=== PATIENT | female | born 1990 | race Caucasian/White ===

== ENCOUNTER 2023-08-02 15:09 | Emergency (ER) | payer MEDICAID ==
[~2023-08-02] VITALS: Ht 175.3 cm; Wt 54.4 kg
[2023-08-02 15:47] VITALS: BP_SYST 135; PULSE 74; RESP 18; TEMP 98.4; O2SAT 95
[2023-08-02 16:31] LABS: BILIRUBIN,URINE NEGATIVE (NEGATIVE); BLOOD, URINE 3+ (NEGATIVE); CLARITY/URINE SL CLOUDY (CLEAR); COLOR,URINE YELLOW (YELLOW); GLUCOSE,URINE NEGATIVE (NEGATIVE); KETONES,URINE TRACE (NEGATIVE); LEUKOCYTE ESTERASE ,URINE NEGATIVE (NEGATIVE); NITRITE, URINE NEGATIVE (NEGATIVE); PROTEIN URINE 2+ (NEGATIVE); UROBILINOGEN,URINE 0.2 (0.2-1.0)
[2023-08-02 16:38] LABS: BASOPHILS # (AUTO) 0.1 K/uL (0.0-0.2); BASOPHILS % (AUTO) 0.7 % (0.0-2.0); EOSINOPHILS # (AUTO) 0.1 K/uL (0.0-0.4); EOSINOPHILS % (AUTO) 0.8 % (0.0-4.0); HEMATOCRIT 40.5 % (36-48); HEMOGLOBIN 13.7 g/dL (12.0-16.0); LYMPHOCYTES # (AUTO) 1.9 K/uL (1.0-5.5); LYMPHOCYTES % (AUTO) 15.1 % (20.5-51.5); MEAN CORPUSCULAR HEMOGLOBIN 29 pg (27-31); MEAN CORPUSCULAR HGB CONC 34 % (32-36); MEAN CORPUSCULAR VOLUME 87 fL (79.0-98.0); MONOCYTES # (AUTO) 0.6 K/uL (0.0-1.0); MONOCYTES % (AUTO) 4.6 % (1.7-9.3); NEUTROPHILS # (AUTO) 10.1 K/uL (1.8-7.7); NEUTROPHILS % (AUTO) 78.8 % (40.0-70.0); PLATELET COUNT (AUTO) 302 K/uL (130-430); RED BLOOD CELL COUNT(AUTO) 4.68 MIL/uL (4.2-6.2); RED CELL DISTRIBUTION WIDTH 13.7 % (9.0-15.0); WHITE BLOOD COUNT (AUTO) 12.8 K/uL (4.8-10.8)
[2023-08-02 17:49] LABS: BACTERIA,URINE MODERATE /HPF (None Seen); MUCUS,URINE 2+ /LPF (None Seen); RBC,URINE >100 /HPF (0-3)
[2023-08-02] MEDS ORDERED: NITR-85 PO (18:23)
[2023-08-02 19:20] VITALS: BP_SYST 135; PULSE 74; RESP 18; TEMP 98.4; O2SAT 95
== END 2023-08-02 18:25 | disposition home or self-care (01) ==
LOC: SED 15:09
DX: O20.0 Threatened abortion (principal); O43.891 Other placental disorders, first trimester; O23.41 Unspecified infection of urinary tract in pregnancy, first trimester; N39.0 Urinary tract infection, site not specified; Z3A.01 Less than 8 weeks gestation of pregnancy; F17.210 Nicotine dependence, cigarettes, uncomplicated; Z88.0 Allergy status to penicillin; Z79.899 Other long term (current) drug therapy
CPT/HCPCS: 36415; 76856; 81000; 81001; 81015; 84702; 85025; 86900; 86901; 99284

== ENCOUNTER 2023-08-05 19:17 | Emergency (ER) | payer MEDICAID ==
[~2023-08-05] VITALS: Ht 175.3 cm; Wt 49.4 kg
[~2023-08-05 19:17] MED LIST: NITR-85 PO
[2023-08-05 19:23] VITALS: BP_SYST 123; PULSE 70; RESP 16; TEMP 98.9; O2SAT 100
[2023-08-05] MEDS: MORPHINE 4 MG INJ. 4 MG/ML VIAL IVP ONE (20:20)
[2023-08-05] MEDS: NACL 0.9% 1,000 ML IV ONE (20:42)
[2023-08-05 20:53] LABS: BASOPHILS % (AUTO) 0.3 % (0.0-2.0); EOSINOPHILS % (AUTO) 0.1 % (0.0-4.0); HEMATOCRIT 41.1 % (36-48); HEMOGLOBIN 14.1 g/dL (12.0-16.0); LYMPHOCYTES # (AUTO) 0.2 K/uL (1.0-5.5); LYMPHOCYTES % (AUTO) 1.7 % (20.5-51.5); MEAN CORPUSCULAR HEMOGLOBIN 29 pg (27-31); MEAN CORPUSCULAR HGB CONC 34 % (32-36); MEAN CORPUSCULAR VOLUME 85 fL (79.0-98.0); MONOCYTES # (AUTO) 0.6 K/uL (0.0-1.0); MONOCYTES % (AUTO) 5.5 % (1.7-9.3); NEUTROPHILS # (AUTO) 9.4 K/uL (1.8-7.7); NEUTROPHILS % (AUTO) 92.4 % (40.0-70.0); PLATELET COUNT (AUTO) 250 K/uL (130-430); RED BLOOD CELL COUNT(AUTO) 4.84 MIL/uL (4.2-6.2); RED CELL DISTRIBUTION WIDTH 13.5 % (9.0-15.0); WHITE BLOOD COUNT (AUTO) 10.2 K/uL (4.8-10.8)
[2023-08-05 20:55] LABS: CALCIUM 9.9 mg/dL (8.4-11.0); CREATININE 0.79 mg/dL (0.55-1.30); POTASSIUM 3.4 mmol/L (3.5-5.1)
[2023-08-05 21:21] LABS: ALBUMIN 4.4 g/dL (3.4-4.8); BILIRUBIN,DIRECT 0.2 mg/dL (0.0-0.3); TOTAL BILIRUBIN 0.8 mg/dL (0.0-1.0); TOTAL PROTEIN, SERUM 8.7 g/dL (6.4-8.3)
[2023-08-05] MEDS: ACETAMINOPHEN 500 MG TABLET PO ONE (22:18)
[2023-08-05] MEDS ORDERED: ACETAMINOPHEN 500 MG TABLET ONE (22:19)
[2023-08-05 22:33] LABS: BILIRUBIN,URINE NEGATIVE (NEGATIVE); BLOOD, URINE 1+ (NEGATIVE); COLOR,URINE YELLOW (YELLOW); GLUCOSE,URINE NEGATIVE (NEGATIVE); KETONES,URINE 1+ (NEGATIVE); LEUKOCYTE ESTERASE ,URINE NEGATIVE (NEGATIVE); NITRITE, URINE NEGATIVE (NEGATIVE); PROTEIN URINE NEGATIVE (NEGATIVE); UROBILINOGEN,URINE 0.2 (0.2-1.0)
[2023-08-05 22:35] LABS: CLARITY/URINE SLIGHTLY CLOUDY (CLEAR)
[2023-08-05 22:43] LABS: BACTERIA,URINE FEW /HPF (None Seen); WBC,URINE 0-3 /HPF (0-3)
[2023-08-05] MEDS ORDERED: ACET-2634 PO (22:59)
[2023-08-05 23:10] VITALS: BP_SYST 108; PULSE 70; RESP 16; TEMP 98.6; O2SAT 98
== END 2023-08-05 23:10 | disposition home or self-care (01) ==
LOC: SED 19:17
DX: O21.9 Vomiting of pregnancy, unspecified (principal); O26.891 Other specified pregnancy related conditions, first trimester; O20.9 Hemorrhage in early pregnancy, unspecified; Z3A.01 Less than 8 weeks gestation of pregnancy; Z88.0 Allergy status to penicillin; Z79.899 Other long term (current) drug therapy
CPT/HCPCS: 99284; 96360; 80076; 80048; 81001; 84702; 83690; 85025; 36415; 76816; 81025; 81000; 81015; J2270; J7030